=== PATIENT | male | born 1960 | race Caucasian/White ===

== ENCOUNTER 2016-12-11 07:09 | Emergency (ER) | payer BC ==
[2016-12-11] MEDS ORDERED: Albuterol 2.5 MG/3 ML NEB.SOL* (0.083%) INH ONE (07:33)
[2016-12-11] MEDS ORDERED: Ibuprofen TAB* 400 MG PO ONE (07:33)
--- NOTE | 2016-12-11 08:18 | RAD ---
INDICATION: Wet cough. COMPARISON: None. TECHNIQUE: Dual energy PA and routine lateral views of the chest were obtained. REPORT: Mild patchy airspace consolidation at the LEFT lung base. Given absence of volume loss inflammatory infiltrate is favored over atelectasis. Clear pleural spaces. Negative for pneumothorax. The heart, pulmonary vasculature, and mediastinal contours are unremarkable. IMPRESSION: Mild LEFT basilar inflammatory infiltrate.
[2016-12-11 08:38] VITALS: BP 159/92
--- NOTE | 2016-12-11 09:12 | UC ---
ferny Richey Timothy, scribed for Zoë Lane DO on 12/11/16 at 0728 . Respiratory Complaint HPI - HPI Summary HPI Summary: Jeffery Gomez is a 56 yo male presenting to [facility] with chest congestion and cough for the past 6 days, worse at night. he states he feels as though he should be coughing up sputum, but is unable to. He also c/o chills and diaphoresis. he states last night he felt slightly SOB, but attributes this to to the coughing. This morning he states he had a small amount of diarrhea. He denies any vomiting , CP, ear pain, fever. His Hx includes appendectomy, former smoking, and hypercholesterolemia. - History of Current Complaint Stated Complaint: COUGH CHEST/HEAD CONGESTION Hx Obtained From: Patient Onset/Duration: Gradual Onset, Lasting Days, Still Present Severity Initially: Moderate Severity Currently: Moderate Pain Intensity: 0 Pain Scale Used: 0-10 Numeric Character: Cough: Nonproductive Associated Signs And Symptoms: Positive: Dyspnea, Chills, URI. Negative: Fever , Dizziness, Nasal Congestion, Sinus Discomfort - Allergies/Home Medications Allergies/Adverse Reactions: Allergies Allergy/AdvReac Type Severity Reaction Status Date / Time No Known Allergies Allergy Verified 11/10/15 07:10 PMH/Surg Hx/FS Hx/Imm Hx Endocrine History Of: Reports: Dyslipidemia Denies: Diabetes, Thyroid Disease Cardiovascular History Of: Denies: Cardiac Disorders, Hypertension Respiratory History Of: Denies: COPD, Asthma GI/ History Of: Denies: Ulcer - Surgical History Surgical History: Yes Surgery Procedure, Year, and Place: APPY - Family History Known Family History: Positive: Cardiac Disease, Diabetes - Social History Occupation: Employed Full-time Lives: With Family Alcohol Use: Occasionally Substance Use Type: None Smoking Status (MU): Former Smoker When Did the Patient Quit Smoking/Using Tobacco: 20 YRS AGO - Immunization History Most Recent Influenza Vaccination: fall 2015 Review of Systems Constitutional: Chills Skin: Negative Eyes: Negative ENT: Negative Respiratory: Shortness Of Breath, Cough Cardiovascular: Negative Gastrointestinal: Diarrhea Genitourinary: Negative Motor: Negative Neurovascular: Negative Musculoskeletal: Negative Neurological: Negative Psychological: Negative All Other Systems Reviewed And Are Negative: Yes Physical Exam Triage Information Reviewed: Yes Appearance: Well-Appearing, No Pain Distress, Obese Vital Signs: Initial Vital Signs Temp 96.7 F 12/11/16 07:16 Pulse 111 12/11/16 07:16 Resp 16 12/11/16 07:16 BP 179/83 12/11/16 07:16 Pulse Ox 94 12/11/16 07:16 Vital Signs Reviewed: Yes Eyes: Positive: Conjunctiva Clear. Negative: Discharge ENT: Positive: Hearing grossly normal, Pharynx normal, TMs normal. Negative: Pharyngeal erythema, Nasal congestion, Nasal drainage, Tonsillar swelling, Tonsillar exudate, Muffled/hoarse voice Neck: Positive: Supple, Nontender Respiratory: Positive: No respiratory distress, No accessory muscle use, Rhonchi - left base, Wheezing - tight diffuse Cardiovascular: Positive: RRR, No Murmur Musculoskeletal Exam: Normal Neurological: Positive: Alert, Muscle Tone Normal Psychological Exam: Normal Psychological: Positive: Age Appropriate Behavior Skin: Positive: Other - warm, dry, normal color UC Diagnostic Evaluation - Laboratory O2 Sat by Pulse Oximetry: 94 - Radiology Xray Interpretation: Positive (See Comments) - IMPRESSION: Mild LEFT basilar inflammatory infiltrate. Radiology Interpretation Completed By: Radiologist Re-Evaluation - Re-Evaluation First Eval Re-Evaluation Time: 08:33 Change: Improved Comment: After adminsitration of albuterol breathing Tx, Pt has decreased wheezing. Rhonchi in the left base. Respiratory Course/Dx - Course Course Of Treatment: Jeffery Gomez is a 56 yo male presenting to [facility] with CP and cough for the past 6 days. After examination and review of his CXR, he will be diagnosed with left sided pneumonia - Differential Dx/Diagnosis Differential Diagnosis/HQI/PQRI: Bronchitis, Lower Resp Infection, Sinusitis Provider Diagnoses: Left sided pneumonia Discharge - Discharge Plan Condition: Stable Disposition: HOME Prescriptions: Albuterol HFA INHALER* [Ventolin HFA Inhaler*] 2 puff INH Q4H PRN #1 mdi PRN Reason: Sob/Wheezing Benzonatate CAP* [Tessalon CAP*] 100 mg PO TID #30 cap Levofloxacin TAB* [Levaquin TAB*] 500 mg PO DAILY #7 tab guaiFENesin ER TAB [Mucinex*] 600 mg PO BID PRN #1 box PRN Reason: Cough guaiFENesin/CODIEN 100MG-10MG* [Robitussin AC 100Mg-10Mg*] 5 - 10 ml PO BEDTIME PRN #100 udc MDD 10ml PRN Reason: Cough predniSONE TAB* [Deltasone TAB*] 40 mg PO DAILY #10 tab Patient Education Materials: Bronchospasm (ED), Pneumonia (ED) Forms: *Work Release Referrals: Mehran Cruz MD [Primary Care Provider] - 2 Days (Follow up in 2 days for re- evaluation. This follow up visit is important, we want to know that you are improving. If you can not get in with your PCP, return here for re-evaluation. ) Additional Instructions: Levofloxacin: You've been given an antibiotic of the quinalone family, levofloxacin ( Levaquin). This medicine is not related to the penicillins, sulfas, cephalosporins, or tetracyclines. It is often given to patients who are allergic to these drugs. It has been chosen for you either because other drugs are not appropriate, or because of the nature of your problem. Levofloxacin should not be taken with antacids, as these can decrease its effectiveness. It can be taken without regard to meals, but you should avoid taking dairy products (milk, cheese, yogurt) within two hours of the levofloxacin. LEVOFLOXACIN SHOULD NOT BE TAKEN BY CHILDREN, NURSING WOMEN, OR WOMEN. Although levofloxacin is usually well-tolerated, common side effects can include nausea and diarrhea. Contact your doctor if you experience any unusual symptoms while on this medication, such as joint pain or swelling, shortness of breath, wheezing, faintness, or hives. ANY TIME YOU TAKE AN ANTIBIOTIC, IT IS IMPORTANT TO REPLENISH THE BODY'S BALANCE OF "GOOD" BACTERIA BY EATING HIGH QUALITY CULTURED FOOD SUCH YOGURT, SAURKRAUT OR GABRIELLE CHI AND/OR TAKING A PROBIOTIC SUPPLEMENT. INHALED BRONCHODILATORS: You have received a prescription for an inhaled bronchodilator -- a medication which stimulates the airways in the lung to dilate. This improves the flow of air in asthma, bronchitis, and emphysema. These medicines have some similarity to adrenaline, and can cause similar side effects: shakiness, racing heart, and a sense of nervousness. These side effects decrease with time. Contact your doctor if these side effects are severe. Do not over-use the medicine. Too-frequent use of the inhaler may make it ineffective. Call your doctor if the inhaler is not controlling your symptoms at the prescribed doses. COUGH-SUPPRESSANT & EXPECTORANT MEDICATION: You are to use a cough medication as needed for relief of symptoms. This medicine is a combination of an expectorant (to make the mucous thinner and more easily "coughed up") and a cough suppressant (to reduce the frequency of coughing). The cough-suppressant medicine is related to narcotics. You may experience mild nausea and sleepiness. Some patients who are very sensitive to narcotics may have stomach pain from this medicine. Taking the medicine with food reduces these side effects. Do not drive or work with machinery until you know how this medicine affects you. The expectorant should have no side effects. Iodine-containing expectorants (such as organidin) should not be taken by persons with active thyroid disease unless approved by your doctor. Call the doctor if you develop shortness of breath, hives, rash, itching, lightheadedness, or severe nausea and vomiting. EXPECTORANT MEDICATION: An expectorant medicine has been prescribed. This type of drug makes mucous thinner, helping the sinuses, nose, and bronchial tubes to remain free of pus and mucous. Expectorants make a cough less severe and more comfortable, and help infected sinuses drain. In general, antihistamines defeat the purpose of the expectorant by making mucous thicker. They should be avoided unless specifically recommended by your physician. TESSALON PERLES: You have received a prescription for Tessalon Perles (benzonatate). This is a non-narcotic medicine for relief of cough. It usually works in about 15- 20 minutes and lasts around four hours. Tessalon Perles should be swallowed. They should not be chewed or dissolved in the mouth (this can produce temporary numbing of the mouth and choking can occur). If you develop any adverse effects such as wheezing, shortness of breath, hives, rash, itching, or lightheadedness, please return at once. CORTICOSTEROID MEDICATION: You have been given a medicine of the cortisone class. This medication is used to control inflammation or allergy. It is usually only given for a short period of time, until the acute process subsides. There are usually no side effects from short-term use of cortisone-like medications. Some persons feel an increased sense of well-being and are not sleepy at bedtime. Long-term use of cortisone medications is best avoided, unless required for a severe condition. If your condition does not remit, or relapses after the course of corticosteroid medication, you should consult your physician. Contact the physician if you develop lightheadedness, black or tarry stools , swelling of the legs, or significant rapid change in weight. The documentation as recorded by the ferny souza Timothy accurately reflects the service I personally performed and the decisions made by , Zoë Lane DO.
== END 2016-12-11 08:54 | disposition home or self-care (01) ==
LOC: UCEAST 07:09
DX: J18.9 Pneumonia, unspecified organism (principal); Z87.891 Personal history of nicotine dependence
CPT/HCPCS: 71020; 99211; A9270-GY; G0463

== ENCOUNTER 2018-07-05 10:17 | Day surgery (SDC) | payer BC ==
--- NOTE | 2018-07-03 09:47 | HP ---
PREOPERATIVE HISTORY AND PHYSICAL: DATE OF SURGERY: 07/05/18 ATTENDING SURGEON: Vincent Lin MD * (DICTATED BY BRO SILVERMAN) DATE OF OFFICE VISIT: 07/02/18 CHIEF COMPLAINT: Bilateral knee pain. HISTORY OF PRESENT ILLNESS: Jeffery is a 58-year-old male who presents to the clinic for bilateral knee pain for the past six months. He states that his worse pain depends on the day. He states he has bilateral medial and anterior aching pain. He rates it at 5/10 as well as intermittent catching and difficulty kneeling. He has noticed decreased range of motion. He has reported intermittent swelling. He denies walking. He is not taking anything for the pain. 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 He did have a fall last year and about two months later he started to develop some pain in his knee. He has done physical therapy for six weeks back in January, which did not help decrease the pain much. He was also given injection by Dr. Banerjee in January, which did not help much. He denies numbness, tingling, fever or chills. He denies history of DVT or PE. He is doing well otherwise. He was recently diagnosed with a thyroid nodule and is scheduled for a biopsy in July with Dr. Blackwood. The patient failed conservative measures and has agreed to undergo a right knee arthroscopy, partial meniscectomy with Dr. Lin on 07/05/18. PAST MEDICAL HISTORY: 1. Hypertension. 2. High cholesterol. 3. GERD. 4. Thyroid nodule. PAST SURGICAL HISTORY: Appendectomy. MEDICATIONS: Lisinopril 2.5 mg one by mouth daily. ALLERGIES: LIPITOR. FAMILY HISTORY: Positive for diabetes, heart disease, hypertension, stroke, cancer and RA. SOCIAL HISTORY: He lives with his spouse. 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 He is a former smoker, quit 18 years ago. He reports occasional alcohol consumption. He exercises occasionally. He is right hand dominant. REVIEW OF SYSTEMS: A 14-point review of systems was reviewed with the patient. Positive for current complaint, otherwise, negative. PHYSICAL EXAMINATION GENERAL: A 58-year-old well-developed, well-nourished male, in no acute distress. Alert and oriented x3. Appropriate mood and affect. Appropriate balance and coordination of the lower extremities. VITAL SIGNS: Height 73.25, weight 291, pulse 88, blood pressure 142/90, respiratory rate 16, temperature 98.3, BMI 38.2. HEENT: Normocephalic, atraumatic. PERRLA. Throat clear. NECK: Supple. PULMONARY: Lungs are clear to auscultation bilaterally. No wheezing, rhonchi or rales. CARDIO: Regular rate and rhythm. S1, S2. No murmurs, gallops or rubs. No edema. ABDOMEN: Positive bowel sounds. Soft, nontender. NEURO: Alert and oriented x3. Cranial nerves grossly intact. Sensation is intact to light touch distally. MUSCULOSKELETAL: Left lower extremity, skin is intact. No warmth or erythema. No obvious abrasions or open wounds. Mild effusion. Range of motion 0-120. There is tenderness to palpation over the medial and lateral joint line. Stable to varus and valgus stress. Stable Chang. Negative posterior drawer. Calf is soft and nontender. Positive Lindsay. +2 DP pulse. +5/5 strength to ankle dorsiflexion and plantarflexion. Right lower extremity, skin is intact. No warmth or erythema. No abrasions or open wounds. Trace effusion. There is tenderness to palpation over the medial and lateral joint line. Range of motion is 0-120. Stable to varus and valgus stress. Stable Chang. Negative posterior drawer. Calf is soft and nontender. Positive Lindsay. +5/5 strength to ankle dorsiflexion and plantarflexion. +2 DP pulse. Sensation intact to light touch distally. DIAGNOSTIC STUDIES: Multi-view x-rays of the bilateral knees revealed mild osteoarthritic changes. MRI of the left knee revealed a lateral meniscus tear and ACL degeneration. MRI of the right knee revealed medial and lateral meniscus tear and an LCL sprain. IMPRESSION: Bilateral medial meniscus tear. PLAN/RECOMMENDATIONS: Jeffery is a 58-year-old male who presents to the clinic for bilateral knee pain due to meniscus tear in both knees. He also has a component of arthrosis, which may be bothering him. He has failed conservative measures, therefore Dr. Lin recommended a right knee arthroscopy and partial meniscectomy. It was explained to him that he may have some aching arthritic pain after the surgery but the knee scope should take away the catching pain that is caused by the meniscus. Postoperative recovery was discussed with as well as risks of surgery to include infection, stiffness; bleeding, numbness, injury to blood vessels, nerves and surrounding structures, persistent pain, risk of anesthesia and risk of DVT and PE were discussed with the patient. He has agreed to undergo surgery and is scheduled to undergo a right knee arthroscopy with partial meniscectomy on 07/05/[address] Lin. He will follow up in 10 to 14 days postop for suture removal. Percocet will be used for postop pain management. BRO SILVERMAN [id number]/[facility] #: [id number] MTDD
[~2018-07-05 10:17] MED LIST: Buffered Lidocaine 0.9% SYRIN* 5 ML/SYR SYRINGE INTRADERM ONE; Dexamethasone IV* 4 MG/ML 1 ML (4 MG) IV SLOW PU ONE; Famotidine IV* 10 MG/ML 2 ML (20 mg) IV ONE
[2018-07-05] MEDS ORDERED: Famotidine IV* 10 MG/ML 2 ML (20 mg) ONE (10:22)
[2018-07-05] MEDS ORDERED: ceFAZolin 2 GM PREMIX (*) 2 GM/50 ML BAG IVPB ONE (10:23)
[2018-07-05] MEDS ORDERED: Dexamethasone IV* 4 MG/ML 1 ML (4 MG) ONE (10:23)
[2018-07-05] MEDS ORDERED: ceFAZolin 1 GM ADVAN(*) 1 GM ADDV.VIAL IVPB ONE (10:39)
[2018-07-05] MEDS ORDERED: Chloroprocaine 2%* 20 ML VIAL ONE (11:27)
[2018-07-05] MEDS ORDERED: fentaNYL* 50 MCG/ML 2 ML VIAL (100 MCG VIAL) ONE (11:27)
[2018-07-05] MEDS ORDERED: Midazolam* 1 MG/ML 5 ML VIAL (5 MG) ONE (11:27)
[2018-07-05] MEDS ORDERED: Lidocain 1% EPI 1:100,000 * 30 ML MDV ONE ×2 (11:49→11:56)
[2018-07-05] MEDS ORDERED: Ropivacaine* 2 MG/ML 20 ML VIAL (0.2%) ONE (11:49)
[2018-07-05] MEDS ORDERED: Ondansetron INJ* 2 MG/ML VIAL ONE (12:01)
[2018-07-05] MEDS ORDERED: Ketorolac INJ* 30 MG/ML 1 ML VIAL ONE (12:01)
[2018-07-05] MEDS ORDERED: fentaNYL* 50 MCG/ML 2 ML VIAL (100 MCG VIAL) IV PRN (13:01)
[2018-07-05] MEDS ORDERED: Ondansetron INJ* 2 MG/ML VIAL IV PRN (13:01)
[2018-07-05] MEDS ORDERED: DiMENhydriNATE IV* 50 MG/ML VIAL IV PUSH PRN (13:01)
[2018-07-05] MEDS ORDERED: HYDROmorphone INJ* 0.5 MG/0.5 ML SYRINGE IV PRN (13:01)
[2018-07-05] MEDS ORDERED: Naloxone* 0.4 MG/ML 1 ML VIAL IV PRN (13:01)
[2018-07-05] MEDS ORDERED: oxyCODONE/Acetamin 5/325 MG* TAB PO PRN (13:01)
[2018-07-05] MEDS ORDERED: oxyCODONE/Acetamin 5/325 MG* TAB ONE (13:06)
[2018-07-05 13:28] VITALS: BP 128/86
--- NOTE | 2018-07-17 09:38 | OP ---
CC: PCP OPERATIVE REPORT: DATE OF OPERATION: 07/05/18 DATE OF : 60 SURGEON: Vincent Lin MD WELFARE SERVICE AIDE: None available. ANESTHESIOLOGIST: Dr. Jain. ANESTHESIA: Spinal. PRE-OP DIAGNOSIS: Right knee medial and lateral meniscus. POST-OP DIAGNOSIS: Right knee medial and lateral meniscus tears with loose body and synovitis. OPERATIVE PROCEDURE: 1. Right knee arthroscopy with partial medial and partial lateral meniscectomy. 2. Removal of loose body. 3. Synovectomy of anterior medial lateral compartments. COMPLICATIONS: None. ESTIMATED BLOOD LOSS: Minimal. IMPLANTS USED: None. INDICATIONS: Jeffery Gomez is a 58-year-old male who has had persistent knee pain and swelling. He h as catching and locking mechanical symptoms. He does have some mild arthritis but has mechanical blo cked motion. He has missed traveling for 6 months. He has failed physical therapy, antiinflammatori es and injections. He elected to proceed with surgical treatment. Risks and benefits were discussed at length to include, but not limited to, bleeding; infection; damage to nerves, vessels, surroundin g structures; wound nonhealing; persistent pain; need for surgery; scarring; stiffness; incomplete re lief of symptoms; risks of anesthesia. DESCRIPTION OF PROCEDURE: The patient was greeted in the preoperative area by the attending surgeon. Correct extremity was marked, consent was confirmed. The patient was brought back to the operating suite where he was placed in a supine position on the operating room table. He then underwent spina l anesthesia after which he was properly positioned in bed. The lateral post was positioned and an u nsterile tourniquet was placed high in the proximal thigh. The right leg was prepped and draped in t he usual sterile fashion beginning with chlorhexidine soap, scrub, and alcohol wipe, and a final prep with ChloraPrep. After appropriate surgical pause indicating site, side, procedure, and administration of antibiotics, the anterior lateral portals were made sharply with 11 blade. Scope was introduced in the joint and the joint was examined. There was obvious synovitis that was present. Patellofemoral joint had gra de 0-1 changes. The medial compartment had a loose body that was evident. This was then removed afte r the anterior medial portal was made. A larger portal had to be made to accommodate the removal of this loose body. The medial meniscus had unstable tearing and fraying, extending to the root, this w as debrided back with michael and biters. The medial femoral condyle had grade 0-1 changes, the medi al plateau had grade 1-2 changes. ACL and PCL were intact. The knee was then placed in a figure- of -four position and attention was directed laterally. There were grade 2 changes to the lateral femor al condyle and grade 2 and 3 changes to the lateral plateau with a radial split tear of the lateral m eniscus extending all the way to the root. This was debrided back using michael and biters. Once thi s was complete, the knee was placed in extension. Patellofemoral joint was examined again there was no unstable fraying but there was abundant synovitis, this was debrided back using electrocautery de vice as well as the shaver. Once this was complete, final images were then obtained. The knee was t hen thoroughly lavaged. Wounds were copiously irrigated with sterile saline. Knee was directly inje cted with 0.2 ropivacaine. Sterile dressings were applied. He was awoken from anesthesia and transfe rred to PACU in stable condition. POSTOPERATIVE PLAN: He will be nonweightbearing as tolerated, crutches will be provided on the day o f discharge, on pain medications. DVT prophylaxis was considered but deferred due to no previous per hiral or family history. I will see the patient back in 10 to 14 days. [id number]/[facility] #: [id number]
== END 2018-07-05 14:19 | disposition home or self-care (01) ==
LOC: OR 10:17
PROVIDERS: ATTEND Orthopaedic Surgery
DX: S83.241A Other tear of medial meniscus, current injury, right knee, initial encounter (principal); S83.281A Other tear of lateral meniscus, current injury, right knee, initial encounter; M65.861 Other synovitis and tenosynovitis, right lower leg; X58.XXXA Exposure to other specified factors, initial encounter; Y92.9 Unspecified place or not applicable; I10 Essential (primary) hypertension; E78.00 Pure hypercholesterolemia, unspecified; K21.9 Gastro-esophageal reflux disease without esophagitis; E04.1 Nontoxic single thyroid nodule; Z87.891 Personal history of nicotine dependence; E66.9 Obesity, unspecified
CPT/HCPCS: A9270-GY; J0690; J1100; J1885; J2250; J2400; J2405; J2795; J3010